=== PATIENT | male | born 1980 ===

== ENCOUNTER 2024-11-11 20:49 | Emergency (ER) | payer BC ==
[~2024-11-11] VITALS: Ht 182.9 cm; Wt 78.5 kg
[2024-11-11 21:35] VITALS: BP 195/128; PULSE 88; RESP 15; TEMP 98.3; O2SAT 99
== END 2024-11-11 23:40 | disposition left against medical advice (07) ==
LOC: ER 20:49
DX: K08.89 Other specified disorders of teeth and supporting structures (principal); Z53.21 Procedure and treatment not carried out due to patient leaving prior to being seen by health care provider